=== PATIENT | female | born 1985 | race Caucasian/White ===

== ENCOUNTER 2019-04-13 11:25 | Emergency (ER) | payer MEDICAID ==
[~2019-04-13] VITALS: Ht 160 cm; Wt 90.9 kg
[~2019-04-13 11:25] MED LIST: CALC-336 PO; ERGO500014 PO; IBUP-1986 PO; LAMO100T2 PO; LEVO25TA2 PO; LURA20TA PO; METH500T6 PO; NORG1TAB56 PO; PAT0.1OS EACHEYE; TEMA30CA5 PO; VENL150C2 PO
[2019-04-13] MEDS ORDERED: TETanus/Pertussis (Acell)/Diphther VAC/PF (Tdap-Adult) 0.5ml syringe IM ONE (12:55)
[2019-04-13 13:18] VITALS: BP 143/92
== END 2019-04-13 13:21 | disposition home or self-care (01) ==
LOC: ER 11:26
DX: S81.851A Open bite, right lower leg, initial encounter (principal); S91.052A Open bite, left ankle, initial encounter; J45.909 Unspecified asthma, uncomplicated; G89.29 Other chronic pain; Z88.1 Allergy status to other antibiotic agents; Z88.0 Allergy status to penicillin; Z79.899 Other long term (current) drug therapy; W54.0XXA Bitten by dog, initial encounter; Y93.89 Activity, other specified; Y92.89 Other specified places as the place of occurrence of the external cause; Y99.8 Other external cause status
CPT/HCPCS: 90471; 90715; 99283

== ENCOUNTER 2019-04-21 13:13 | Emergency (ER) | payer MEDICAID ==
[~2019-04-21] VITALS: Ht 160 cm; Wt 97.0 kg
[2019-04-21 13:13] VITALS: BP 133/96
[2019-04-21] MEDS ORDERED: METR500T PO (13:30)
[2019-04-21] MEDS ORDERED: DOXY100C43 PO (13:30)
== END 2019-04-21 13:43 | disposition home or self-care (01) ==
LOC: ER 13:13
DX: S81.832D Puncture wound without foreign body, left lower leg, subsequent encounter (principal); S81.831D Puncture wound without foreign body, right lower leg, subsequent encounter; S80.12XD Contusion of left lower leg, subsequent encounter; S80.11XD Contusion of right lower leg, subsequent encounter; Z88.1 Allergy status to other antibiotic agents; Z88.0 Allergy status to penicillin; Z79.899 Other long term (current) drug therapy; Z88.8 Allergy status to other drugs, medicaments and biological substances; W54.0XXD Bitten by dog, subsequent encounter
CPT/HCPCS: 99283

== ENCOUNTER → 2024-01-12 | Outpatient (CLI) | payer MEDICAID ==
[~2024-01-12] MED LIST changes: -LURA20TA PO; +LURA20TA8 PO; +METH-797 PO; -METH500T6 PO; -NORG1TAB56 PO; +NORG1TAB90 PO; -VENL150C2 PO; +VENL150C5 PO
== END | disposition home or self-care (01) ==
LOC: RAD 08:40
PROVIDERS: ATTEND Family Medicine
DX: R16.1 Splenomegaly, not elsewhere classified (principal); R10.13 Epigastric pain; Z90.49 Acquired absence of other specified parts of digestive tract
CPT/HCPCS: 74150

== ENCOUNTER 2024-04-23 12:50 | Emergency (ER) | payer MEDICAID ==
[~2024-04-23] VITALS: Ht 160 cm; Wt 97.0 kg
[2024-04-23 13:03] VITALS: BP 135/84; TEMP 97.8
[2024-04-23] MEDS ORDERED: CEPH-585 PO (14:49)
[2024-04-23] MEDS: cephalexin 250mg capsule PO ONE (14:58)
[2024-04-23 15:04] VITALS: PULSE 67; RESP 18; O2SAT 98
== END 2024-04-23 15:08 | disposition home or self-care (01) ==
LOC: ER 12:51
DX: S20.101A Unspecified superficial injuries of breast, right breast, initial encounter (principal); J45.909 Unspecified asthma, uncomplicated; G89.29 Other chronic pain; M54.9 Dorsalgia, unspecified; F32.A Depression, unspecified; Z88.1 Allergy status to other antibiotic agents; Z88.0 Allergy status to penicillin; Z88.8 Allergy status to other drugs, medicaments and biological substances; Z79.899 Other long term (current) drug therapy; Z79.1 Long term (current) use of non-steroidal anti-inflammatories (NSAID); X58.XXXA Exposure to other specified factors, initial encounter; Y93.89 Activity, other specified; Y92.89 Other specified places as the place of occurrence of the external cause; Y99.8 Other external cause status
CPT/HCPCS: 99283

== ENCOUNTER 2024-05-10 19:57 | Emergency (ER) | payer MEDICAID ==
[~2024-05-10] VITALS: Ht 160 cm; Wt 94.6 kg
[2024-05-10 19:59] VITALS: BP 130/82; PULSE 88; TEMP 98.1; O2SAT 99
[2024-05-10] MEDS ORDERED: CIPR7.5D7 EACH EAR (20:14)
[2024-05-10] MEDS ORDERED: CLIN300C54 PO (20:14)
[2024-05-10] MEDS: ketorolac trometh. 30mg/ml inj. IM ONE (20:31)
[2024-05-10] MEDS: ketorolac tromethamine 15mg/ml inj. IM ONE (20:35)
[2024-05-10] MEDS: dexamethasone sod phosphate 10mg/ml inj IM STA (20:35)
[2024-05-10 20:38] VITALS: RESP 18
== END 2024-05-10 20:39 | disposition home or self-care (01) ==
LOC: ER 19:58
DX: H66.93 Otitis media, unspecified, bilateral (principal); H60.8X3 Other otitis externa, bilateral; J45.909 Unspecified asthma, uncomplicated; G89.29 Other chronic pain; M54.9 Dorsalgia, unspecified; F32.A Depression, unspecified; Z88.1 Allergy status to other antibiotic agents; Z88.0 Allergy status to penicillin; Z79.1 Long term (current) use of non-steroidal anti-inflammatories (NSAID); Z79.899 Other long term (current) drug therapy
CPT/HCPCS: 96372; 99284; J1100; J1885

== ENCOUNTER 2025-09-05 17:18 | Emergency (ER) | payer MEDICAID ==
[~2025-09-05] VITALS: Ht 160 cm; Wt 98.2 kg
[~2025-09-05 17:18] MED LIST changes: +CIPR7.5D7 EACH EAR
[2025-09-05 17:22] VITALS: BP 126/93; PULSE 88; RESP 16; O2SAT 100
--- NOTE | 2025-09-05 18:47 | Physician Documentation ---
HPI ~ General Chief Complaint: Tooth Problem Stated Complaint: TOOTH PAIN Time Seen by MD: 17:38 Primary Medical Doctor: NONE History of Present Illness HPI Comment Patient is a 39-year-old female that presents to the emergency department for evaluation of tooth pain and accompanied swelling to her right jaw. Patient reports that she has a cracked tooth and scheduled for a root canal in September. Patient reports that she was placed on a course of antibiotics approximately 2 months ago but since that time the tooth has become infected again. Reports an allergy to Augmentin. No other symptoms reported at this time. Medication Reconciliation Allergies: Coded Allergies: amoxicillin (Verified Allergy, Unknown, RASH, VOMITING, 09/05/25) clavulanic acid (Verified Allergy, Unknown, RASH, VOMITING, 09/05/25) Penicillins (Verified Adverse Reaction, Unknown, VOMITING, 09/05/25) Scheduled Calcium Carbonate (Calcium), 1 TAB PO DAILY, (Reported) Ciprofloxacin HCl/Dexameth (Ciproflox-Dexameth Otic Susp), 2 DROP EACH EAR TID Clindamycin (Cleocin ), 2 CAP PO Q8H Ergocalciferol* (Vitamin D*), 1 CAP PO QFRIDAY, (Reported) Ibuprofen (Ibuprofen), 1 TAB PO Q8H Lamotrigine* (Lamictal*), 300 MG PO DAILY, (Reported) Lurasidone HCl (Latuda), 1 TAB PO DAILY, (Reported) Norgestimate-Ethinyl Estradiol (Ortho Tri-Cyclen), 1 EACH PO DAILY, (Reported) Venlafaxine HCl (Effexor Xr), 2 CAP PO DAILY, (Reported) levothyroxine sodium* (Synthroid*), 50 MCG PO DAILY, (Reported) Scheduled PRN Methocarbamol (Methocarbamol), 1 TAB PO HSPRN PRN for spasm Olopatadine Hcl (PATANOL ophth drops), 1 DROP EACHEYE PRN PRN for CONJUNCTIVITIS, (Reported) Temazepam* (Restoril*), 1 CAP PO HS PRN for sleep, (Reported) Past Medical History Past Medical History: No Pertinent History, Asthma, Chronic Back Pain, *PSYCH*, Depression Past Surgical History: noncontributory Alcohol Use: None Lives In: Home Review of Systems ROS As stated above in the HPI, otherwise all systems are reviewed and negative. Constitutional: Reports: no symptoms reported, see HPI, chills, diaphoresis, fever, malaise, weakness, other ENT: Reports: no symptoms reported, see HPI, ear pain, ear bleeding, ear discharge, hearing loss, ear ringing, nose pain, nose bleeding, nose congestion, nose discharge, throat pain, throat swelling, voice change, mouth pain, mouth bleeding, mouth swelling, other Physical Exam Vital Signs: Temperature: 97.8, Source: Temporal, Heart Rate: 88, Respiratory Rate: 16, BP: 126/93, Pulse Oximetry: 100, Weight: 98.200 Oxygen Flow Rate: 0 Physical Exam VITALS: Reviewed and as above. GENERAL: Alert, no apparent distress. HEENT: Normocephalic, atraumatic, PERRL, EOMI, dry mucosa, no erythema, swelling to the right cheek right lower gumline adjacent to the 2nd molar on the right side, lymphadenopathy noted is a right submandibular lymph nodes. RESPIRATORY: Lungs clear, normal breath sounds, no respiratory distress. SKIN: Warm and dry, no rash NEURO: Oriented x4, No motor or sensory deficit PSYCH: Normal mood and affect, no agitation Progress Results/Orders Results/Orders Vital Signs 09/05/25 09/05/25 17:22 18:54 Temp 97.8 97.8 Pulse 88 Resp 16 B/P (MAP) 126/93 Pulse Ox 100 O2 Flow Rate 0 Medical Decision Making Additional information obtaine: other Findings Patient presents for dental pain due to suspected dental layo. Patient not immunosuppressed, afebrile and well appearing with patent airway, have low suspicfion for deep space infection or any concern for airway compromise. Based on history, physical, and work up. Evidence of dental margaret with fracture to the lower right jaw the 2nd molar. No evidence of RPA, [employer], Ludwigs angina, periapical abscess. Instructed patient to continue to treat pain with ibuprofen/acetaminophen until they see a dentist. Antibiotics prescribed. Patient discharged home and will follow up with dentist. Discussed return precautions for odontogenic infections and other dental pain emergencies. Patient will follow up with her primary care provider. Patient will follow up with a dentist in September. Patient will return to the emergency department with any worsening or recurrent symptoms or any additional concerning symptoms that we discussed here today i.e. increased swelling difficulty swallowing airway difficulty or tightness fever chills nausea vomiting or any other symptoms that we discussed here today. Differential Dx:Considerations: Include: Alveolar fracture, Alveolar osteitis, ANUG, Facial Cellulitis, Periapical abscess, Peridontal abscess, Post-extraction bleeding, Pulpitis, Tooth avulsion, Tooth eruption, Tooth Fracture, Trigeminal neuralgia, Tooth subluxation, Other Departure Disposition: HOME / SELF CARE / HOMELESS Impression: Primary Impression: Toothache Additional Impression: Dental abscess Condition: Stable Discharge Instructions: Dental Caries, Adult, Dental Abscess, Dental Pain Additional Instructions: Patient presents for dental pain due to suspected dental layo. Patient not immunosuppressed, afebrile and well appearing with patent airway, have low suspicfion for deep space infection or any concern for airway compromise. Based on history, physical, and work up. Evidence of dental margaret with fracture to the lower right jaw the 2nd molar. No evidence of RPA, [employer], Ludwigs angina, periapical abscess. Instructed patient to continue to treat pain with ibuprofen/acetaminophen until they see a dentist. Antibiotics prescribed. Patient discharged home and will follow up with dentist. Discussed return precautions for odontogenic infections and other dental pain emergencies. Patient will follow up with her primary care provider. Patient will follow up with a dentist in September. Patient will return to the emergency department with any worsening or recurrent symptoms or any additional concerning symptoms that we discussed here today i.e. increased swelling difficulty swallowing airway difficulty or tightness fever chills nausea vomiting or any other symptoms that we discussed here today. Referrals: NO PRIMARY CARE PROVIDER (PCP) Prescriptions Clindamycin (Cleocin ) 150 Mg Capsule 2 CAP PO Q8H for 7 Days, #42 CAP Prov: BHUMIKA FLETCHER 09/05/25 Education Educated: Patient Educated regarding: diagnosis, treatment, need for follow up Signature Scribe Signature: N/A Attestation: N/A BHUMIKA FLETCHER Sep 05, 2025 18:47 CRISTINA LUNA MD Sep 06, 2025 06:11
[2025-09-05] MEDS ORDERED: CLIN150C2 PO (18:51)
[2025-09-05 18:54] VITALS: TEMP 97.8
[2025-09-05] MEDS: ibuprofen tablet 400 MG TABLET PO ONE (19:02)
== END 2025-09-05 19:08 | disposition home or self-care (01) ==
LOC: ER 17:19
DX: K04.7 Periapical abscess without sinus (principal); G89.29 Other chronic pain; F32.A Depression, unspecified; Z88.1 Allergy status to other antibiotic agents; Z88.0 Allergy status to penicillin; Z79.899 Other long term (current) drug therapy
CPT/HCPCS: 99284